=== PATIENT | female | born 1965 | race Caucasian/White ===

== ENCOUNTER → 2019-01-01 | Outpatient (CLI) | payer OTHER ==
[~2019-01-01] MED LIST: Amoxicillin500 MG PO; CRUTCH4 USE; CYCL10 PO; HYDACE5 PO; IBUP600 PO; NAPR500 PO; Norco 5-325 Ta1 EACH PO; Ultram50 MG PO; Zofran4 MG PO
[2019-01-05 14:07] LABS: HPV 16 Negative (Negative); HPV 18 Negative (Negative); HPV OTHER HR TYPES Negative (Negative)
== END | disposition home or self-care (01) ==
LOC: LAB SHORT 17:15 → LAB 17:15
PROVIDERS: Nurse Practitioner Family
DX: Z01.419 Encounter for gynecological examination (general) (routine) without abnormal findings (principal)
CPT/HCPCS: 87624; G0123

== ENCOUNTER 2023-04-12 06:33 | Inpatient (IN) | payer OTHER ==
[~2023-04-12] VITALS: Ht 165.1 cm; Wt 82.4 kg
[2023-04-12 07:25] LABS: BASOPHILS ABSOLUTE AUTO 0.04 K/mm3 (0.00-0.23); BASOPHILS PERCENT AUTO 0 % (0-2); EOSINOPHILS ABSOLUTE AUTO 0.07 K/mm3 (0.00-0.68); EOSINOPHILS PERCENT AUTO 0 % (0-6); Hematocrit 40.8 % (33.0-51.0); Hemoglobin 13.4 g/dL (11.5-16.0); IMMATURE GRAN ABSOLUTE AUTO 0.07 K/mm3 (0.00-0.10); IMMATURE GRAN PERCENT AUTO 0 % (0-1); LYMPHOCYTES ABSOLUTE AUTO 1.28 K/mm3 (0.84-5.20); LYMPHOCYTES PERCENT AUTO 8 % (21-46); MONOCYTES ABSOLUTE AUTO 1.25 K/mm3 (0.16-1.47); MONOCYTES PERCENT AUTO 8 % (4-13); Mean Corpuscular HGB 28.9 pg (26.0-34.0); Mean Corpuscular HGB Conc 32.8 g/dL (31.5-36.5); Mean Corpuscular Volume 88 fL (80-100); NEUTROPHILS ABSOLUTE AUTO 13.17 K/mm3 (1.96-9.15); NEUTROPHILS PERCENT AUTO 83 % (41-73); RDW Coefficient Variation 13.4 % (11.7-14.2); RDW Standard Deviation 43.1 fL (35.1-46.3); Red Blood Cell Count 4.64 M/mm3 (3.80-5.20); White Blood Cell Count 15.88 K/mm3 (4.00-11.30)
[2023-04-12 07:42] LABS: Albumin, Blood 2.6 g/dL (3.4-5.0); Albumin/Globulin Ratio 0.5 (0.8-1.8); Bilirubin, Direct 0.1 mg/dL (0.0-0.3); Bilirubin, Indirect 0.2 mg/dL (0.1-0.7); Bilirubin, Total 0.3 mg/dL (0.1-1.0); Bun/Creatinine Ratio 13.7 (12.0-20.0); Calcium, Blood 8.5 mg/dL (8.5-10.1); Creatinine, Blood 0.58 mg/dL (0.40-1.00); Magnesium, Blood 2.3 mg/dL (1.6-2.4); Potassium, Blood 3.9 mmol/L (3.5-5.5); Total Protein, Blood 7.6 g/dL (6.4-8.2)
[2023-04-12 07:53] LABS: Mean Platelet Volume 10.3 fL (9.1-12.4); Platelet Count 222 K/mm3 (150-400)
[2023-04-12 11:56] VITALS: BP 108/75
[2023-04-12 13:15] LABS: Influenza A, PCR NEGATIVE (NEGATIVE); Influenza B, PCR NEGATIVE (NEGATIVE); Resp Syncytial Virus, PCR NEGATIVE (NEGATIVE); SARS-Cov-2 (COVID-19) PCR, MMC NEGATIVE (NEGATIVE)
[2023-04-12 14:38] VITALS: BP 111/73
[2023-04-12 19:31] VITALS: BP 104/66
--- NOTE | 2023-04-12 19:56 | NUR ---
SHIFT SUMMARY- PT ADMITTED THROUGH THE ED. UPON ARRIVAL SHE WAS NOTED TO BE IN A LARGE AMOUNT OF PAIN. IV WAS INFUSING AZITHROMYACIN. NEW IV PLACED UPON ARRIVAL TO MEDICAL FLOOR 20G R AC RUNNING NS AT 125ML/HR. CALLED DR FONTANEZ FOR PAIN MANAGEMENT MEDS. OXY 5MG SEEMED TO HELP THE PT. HOWEVER IT WAS NOTED THAT SHE WAS HOLDING HER BODY TENSE, THE WEAK COUGH SHE HAS CAUSES THE PAIN TO BECOME UNBEARABLE (PER PT). ASSISTED THE PT TO RELAX. AFTER OXY SHE WAS ABLE TO MOVE ENOUGH TO GET OOB AND WALK TO THE BATHROOM 1P SBA. SHE WAS ASSISTD TO A GOWN AND ATTENDS,HAIR WASHED AND WASHCLOTH FOR FACE PROVIDED, HAIR COMBED. THEN THE PT WAS TALKED THROUGH RELAXING HER BODY. ONCE POSITIONED IN BED AND REMINDED TO RELAX, HER PAIN IMPROVED FOR A LITTLE BIT AND SHE WAS ABLE TO REST. PT PLACED ON TELE. PT REQUESTED PAIN MANAGEMENT AGAIN AT END OF SHIFT. TOO SOON TO MEDICATE AT THIS TIME HOWEVER HER TEMP WAS 100.0 ON LAST VITALS. CALLED ИР[facility] AND LEFT A MESSAGE, REALIZED DR FONTANEZ MAY STILL BE HERE, CALLED HIM HE PLACED AN ORDER FOR TYLENOL. TEMP RECHECK WAS 100.9. MEDICATED WITH 500MG TYLENOL. OXY AVAILABLE AGAIN AT 1940. 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 REPORT COMPLETED WITH NIGHT RN, NO CURRENT S&S OF DISTRESS. PT ON 2L VIA SD.
[2023-04-13 04:18] VITALS: BP 92/60
--- NOTE | 2023-04-13 04:20 | NUR ---
SHIFT SUMMARY PT ADMIT FOR SEPSIS PNA. EXIBITS SIGNS OF RESPIRATORY DISTRESS. PT STATES SHE IS "ANXIOUS AND PANICY" BECAUSE SHE CAN'T CATCH HER BREATH. ABLE TO EXERT SOME STRENGTH IN WALKING TO RESTROOM AT BEGINNING OF SHIFT, BUT WHEN PAIN RETURNS, SHE HAS DIFFICULTY MAKING IT ALL THE WAY. BEDSIDE COMMODE PROVIDED. MEDICATED FOR PAIN X2 DURING SHIFT. 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 RT IN ROOM X2 DURING SHIFT. TREATMENTS PROVING EFFECTIVE PT ABLE TO EFFECTIVELY EXIBIT PRODUCTIVE COUGHING AND VERBALIZES MORE EASE OF BREATHING. AFTER BREATHING TREATMENTS, PT ABLE TO HOLD CONVERSATION WITH MINIMAL TO MODERATE BREATHING DIFFICULTY. PLEASANT AND COOPERATIVE WITH CARE PLAN.
[2023-04-13 05:25] LABS: BASOPHILS ABSOLUTE AUTO 0.03 K/mm3 (0.00-0.23); BASOPHILS PERCENT AUTO 0 % (0-2); EOSINOPHILS ABSOLUTE AUTO 0.03 K/mm3 (0.00-0.68); EOSINOPHILS PERCENT AUTO 0 % (0-6); Hematocrit 33.1 % (33.0-51.0); Hemoglobin 10.5 g/dL (11.5-16.0); IMMATURE GRAN ABSOLUTE AUTO 0.04 K/mm3 (0.00-0.10); IMMATURE GRAN PERCENT AUTO 0 % (0-1); LYMPHOCYTES ABSOLUTE AUTO 1.23 K/mm3 (0.84-5.20); LYMPHOCYTES PERCENT AUTO 12 % (21-46); MONOCYTES PERCENT AUTO 10 % (4-13); Mean Corpuscular HGB 28.8 pg (26.0-34.0); Mean Corpuscular HGB Conc 31.7 g/dL (31.5-36.5); Mean Corpuscular Volume 91 fL (80-100); Mean Platelet Volume 10.3 fL (9.1-12.4); NEUTROPHILS ABSOLUTE AUTO 7.59 K/mm3 (1.96-9.15); NEUTROPHILS PERCENT AUTO 77 % (41-73); Platelet Count 227 K/mm3 (150-400); RDW Coefficient Variation 13.6 % (11.7-14.2); RDW Standard Deviation 46.4 fL (35.1-46.3); Red Blood Cell Count 3.65 M/mm3 (3.80-5.20); White Blood Cell Count 9.92 K/mm3 (4.00-11.30)
[2023-04-13 06:47] LABS: Albumin, Blood 1.9 g/dL (3.4-5.0); Albumin/Globulin Ratio 0.5 (0.8-1.8); Bilirubin, Total 0.2 mg/dL (0.1-1.0); Bun/Creatinine Ratio 10.9 (12.0-20.0); Calcium, Blood 7.6 mg/dL (8.5-10.1); Creatinine, Blood 0.55 mg/dL (0.40-1.00); Globulin, Blood 4.2 g/dL (2.2-4.0); Potassium, Blood 3.7 mmol/L (3.5-5.5); Total Protein, Blood 6.1 g/dL (6.4-8.2)
[2023-04-13 07:54] VITALS: BP 97/61
[2023-04-13 17:00] VITALS: BP 111/66
--- NOTE | 2023-04-13 17:20 | NUR ---
PT ASKED FOR PAIN MEDICATION FOR THE PAIN IN HER RIBS, TEMP WAS ELEVATED 101.6. WENT TO MEDICATE WITH TYLENOL AND OXY. PT WAS NOTABLY LETHARGIC AND HOT TO THE TOUCH. TEMP 101.8. MEDICATED WITH TYLENOL AND OXY, REMOVED BLANKETS AND SHEETS, HOB ELEVATED TO AID IN PT INCREASED WORK OF BREATHING. ASSISTED THE PT TO REMOVE PILLOWS FROM THE BED AROUND HER LEGS. NOTED THE LEFT LEG WAS HOT TO TOUCH, HOWEVER THE RIGHT LEG WAS MERELY WARM. ATTEMPTED TO PALPATE PEDAL PULSES AND WAS NOT ABLE TO PALPATE THE LEFT PEDAL PULSE. USED THE DOPPLER TO FIND THE PULSE, IT TOOK A FEW MINUTES TO LOCATE THE VERY FAINT MURMURING PULSE ON THE RIGHT FOOT, WHEN COMPARED TO THE LEFT THE SOUND WAS VERY DIFFERENT. CALLED DR FONTANEZ, HE WAS OFF BY THIS TIME ([id number]) CALLED ИРИН[facility], RECIEVED ORDER FOR ARTERIAL STUDY ON THE RLE, STAT CHEST XRAY AND STAT VBG. ALL WERE COMPLETED. NOTED PT SATS WERE LOW, CALLED RT AND INCREASED FLOW OF O2. PT NOW ON 5L VIA NC TO MAINTAIN SATS 90-93%. RT PROVIDED A TREATMENT DURING THIS EVENT.
[2023-04-13 18:19] LABS: Bicarbonate Venous 26.4 mmol/L (24.0-30.0); PCO2 Venous 33.2 mmHg (38-42); pH Blood Venous 7.49 (7.34-7.37)
[2023-04-13 19:42] VITALS: BP 107/68
--- NOTE | 2023-04-13 19:46 | NUR ---
SHIFT SUMMARY- AFTER THE PT HAD HER BREATHING Tx AND THE TYLENOL AND ICE PACKS IN THE ARM PITS AND BACK OF THE NECK, HER FEVER APPARENTLY BROKE. SHE BECAME DRENCHED IN SWEAT, GOWN, ATTENDS, PIERRE AND PILLOW CASES WERE CHANGED. PT ASSISTED TO BSC. O2 SATS 93% ON 5L VIA NC. SPOKE TO ИРИНА ABOUT THE IMAGES AND RECIEVED AN ADDITIONAL ORDER FOR PO IBUPROFEN. FIRST DOSE NOW. PT IS NOW ALERT AND TACHYPNIC, RESP RATE 25, RT IS AWARE OF THE PT. PASSED THIS ALL ON IN REPORT TO NIGHT RN. SUGGESTED SHE REQUEST CONT PULSE OX FROM MD WHEN THE MD IS CALLED THIS EVENING. ARTERIAL STUDY WAS ORDERED FOR THE RLE D/T DECREASED PULSE AND DECREASED CAP REFILL. PT IS ON TELE AND DURING THIS EVENT THIS EVENING SHE DID HAVE A RUN OF BIGEMENY (PER TELE). PT IS CURRENTLY SITTING UP IN BED, CALL LIGHT IN REACH. HER BREATHING APPEARS LABORED AND FAST, NIGHT RN AND WASTE COTTON CLEANER MADE AWARE OF THE PT STATUS.
--- NOTE | 2023-04-14 04:07 | NUR ---
PATIENT IS ALERT AND ORIENTED, ON TELE SINUS RHYTHM AT 73. WITH OXYGEN AT 5LPM/NASAL CANNULA. WITH PRODUCTIVE COUGH, NEBULIZATION TREATMENT GIVEN BY RT. ONGOING IV FLUIDS OF NSS 1L AT 125 ML/HR ON RIGHT AC, INFUSING WELL. COMPLAINT OF LEFT RIB PAIN AND GIVEN HER TYLENOL AND OXYCODONE. NO OTHER COMPLAINTS MADE. NEEDS ATTENDED. CALL LIGHT WITHIN PATIENT'S REACH. WILL CONTINUE TO MONUTOR.
[2023-04-14 05:02] VITALS: BP 117/67
[2023-04-14 05:44] LABS: BASOPHILS ABSOLUTE AUTO 0.03 K/mm3 (0.00-0.23); BASOPHILS PERCENT AUTO 0 % (0-2); EOSINOPHILS ABSOLUTE AUTO 0.08 K/mm3 (0.00-0.68); EOSINOPHILS PERCENT AUTO 1 % (0-6); Hematocrit 34.3 % (33.0-51.0); Hemoglobin 10.9 g/dL (11.5-16.0); IMMATURE GRAN ABSOLUTE AUTO 0.03 K/mm3 (0.00-0.10); IMMATURE GRAN PERCENT AUTO 0 % (0-1); LYMPHOCYTES ABSOLUTE AUTO 1.49 K/mm3 (0.84-5.20); LYMPHOCYTES PERCENT AUTO 16 % (21-46); MONOCYTES PERCENT AUTO 12 % (4-13); Mean Corpuscular HGB 28.6 pg (26.0-34.0); Mean Corpuscular HGB Conc 31.8 g/dL (31.5-36.5); Mean Corpuscular Volume 90 fL (80-100); NEUTROPHILS ABSOLUTE AUTO 6.53 K/mm3 (1.96-9.15); NEUTROPHILS PERCENT AUTO 71 % (41-73); RDW Coefficient Variation 13.7 % (11.7-14.2); RDW Standard Deviation 45.4 fL (35.1-46.3); Red Blood Cell Count 3.81 M/mm3 (3.80-5.20); White Blood Cell Count 9.26 K/mm3 (4.00-11.30)
[2023-04-14 06:05] LABS: Bun/Creatinine Ratio 22.9 (12.0-20.0); Calcium, Blood 8.2 mg/dL (8.5-10.1); Creatinine, Blood 0.39 mg/dL (0.40-1.00); Potassium, Blood 3.9 mmol/L (3.5-5.5)
[2023-04-14 06:09] LABS: Platelet Count 272 K/mm3 (150-400)
[2023-04-14 07:41] VITALS: BP 118/71
[2023-04-14 17:08] VITALS: BP 107/68
--- NOTE | 2023-04-14 17:38 | NUR ---
SHIFT SUMMARY NO ACUTE CHANGES THIS SHIFT. CALL LIGHT WITHIN REACH AND PT ABLE TO MAKE NEEDS KNOWN.
[2023-04-14 20:24] VITALS: BP 91/62
--- NOTE | 2023-04-15 04:43 | NUR ---
PATIENT IS ALERT AND ORIENTED. WITH OXYGEN ON 4 LPM/NASAL CANNULA. BREATHING TREATMENT RENDERED BY RESPIRATORY THERAPIST. ON TELE ON SINUS RHYTHM AT 76. WITH PIV ON RIGHT ARM WITH ONGOING IV FLUIDS OF NSS 1L AT 125 ML/HR. MEDICATED FOR PAIN. NEED ATTENDED. CALL LIGHT WITHIN PATIENT'S REACH, CALL APPROPRIATELY. WILL CONITNUE TO MONITOR.
[2023-04-15 05:03] VITALS: BP 87/61
[2023-04-15 05:32] LABS: BASOPHILS ABSOLUTE AUTO 0.03 K/mm3 (0.00-0.23); BASOPHILS PERCENT AUTO 0 % (0-2); EOSINOPHILS ABSOLUTE AUTO 0.08 K/mm3 (0.00-0.68); EOSINOPHILS PERCENT AUTO 1 % (0-6); Hematocrit 30.8 % (33.0-51.0); IMMATURE GRAN ABSOLUTE AUTO 0.05 K/mm3 (0.00-0.10); IMMATURE GRAN PERCENT AUTO 1 % (0-1); LYMPHOCYTES ABSOLUTE AUTO 1.18 K/mm3 (0.84-5.20); LYMPHOCYTES PERCENT AUTO 12 % (21-46); MONOCYTES ABSOLUTE AUTO 1.23 K/mm3 (0.16-1.47); MONOCYTES PERCENT AUTO 12 % (4-13); Mean Corpuscular HGB 28.7 pg (26.0-34.0); Mean Corpuscular HGB Conc 32.5 g/dL (31.5-36.5); Mean Corpuscular Volume 88 fL (80-100); Mean Platelet Volume 9.5 fL (9.1-12.4); NEUTROPHILS ABSOLUTE AUTO 7.53 K/mm3 (1.96-9.15); NEUTROPHILS PERCENT AUTO 75 % (41-73); Platelet Count 325 K/mm3 (150-400); RDW Coefficient Variation 13.8 % (11.7-14.2); RDW Standard Deviation 44.8 fL (35.1-46.3); Red Blood Cell Count 3.49 M/mm3 (3.80-5.20)
[2023-04-15 06:00] LABS: Albumin, Blood 1.7 g/dL (3.4-5.0); Anion Gap 4 mmol/L (6-16); Blood Urea Nitrogen 8 mg/dL (8-24); Bun/Creatinine Ratio 20.5 (12.0-20.0); CO2, Blood 28 mmol/L (21-32); Calcium, Blood 8.2 mg/dL (8.5-10.1); Chloride, Blood 109 mmol/L (98-108); Creatinine, Blood 0.39 mg/dL (0.40-1.00); Glomerular Filtration Rate 115 (60-); Glucose, Blood 100 mg/dL (70-99); Magnesium, Blood 2.1 mg/dL (1.6-2.4); Phosphorus, Blood 3.6 mg/dL (2.5-4.9); Potassium, Blood 3.7 mmol/L (3.5-5.5); Sodium, Blood 141 mmol/L (136-145)
[2023-04-15 07:34] VITALS: BP 98/62
[2023-04-15 15:40] VITALS: BP 109/65
--- NOTE | 2023-04-15 18:23 | NUR ---
SHIFT SUMMARY PT WITH L CHEST/RIB PAIN. STATES SHE COUGHS MORE WHEN HER PAIN MEDS WEAR OFF AND THE PAIN THEN GETS WORSE. COUGHING UP SPUTUM. IN TO STAY WITH PT MOST OF THE DAY. DECREASED O2 TO 2.5 L/M AND SATS REMAIN IN LOW 90'S.
[2023-04-15 19:50] VITALS: BP 105/53
[2023-04-16 03:15] VITALS: BP 121/58
[2023-04-16 05:18] LABS: BASOPHILS ABSOLUTE AUTO 0.02 K/mm3 (0.00-0.23); BASOPHILS PERCENT AUTO 0 % (0-2); EOSINOPHILS ABSOLUTE AUTO 0.02 K/mm3 (0.00-0.68); EOSINOPHILS PERCENT AUTO 0 % (0-6); Hematocrit 30.6 % (33.0-51.0); IMMATURE GRAN ABSOLUTE AUTO 0.06 K/mm3 (0.00-0.10); IMMATURE GRAN PERCENT AUTO 1 % (0-1); LYMPHOCYTES ABSOLUTE AUTO 1.44 K/mm3 (0.84-5.20); LYMPHOCYTES PERCENT AUTO 13 % (21-46); MONOCYTES ABSOLUTE AUTO 0.99 K/mm3 (0.16-1.47); MONOCYTES PERCENT AUTO 9 % (4-13); Mean Corpuscular HGB 28.7 pg (26.0-34.0); Mean Corpuscular HGB Conc 32.7 g/dL (31.5-36.5); Mean Corpuscular Volume 88 fL (80-100); Mean Platelet Volume 9.4 fL (9.1-12.4); NEUTROPHILS ABSOLUTE AUTO 8.52 K/mm3 (1.96-9.15); NEUTROPHILS PERCENT AUTO 77 % (41-73); Platelet Count 403 K/mm3 (150-400); RDW Coefficient Variation 13.8 % (11.7-14.2); RDW Standard Deviation 43.8 fL (35.1-46.3); Red Blood Cell Count 3.49 M/mm3 (3.80-5.20); White Blood Cell Count 11.05 K/mm3 (4.00-11.30)
--- NOTE | 2023-04-16 05:41 | NUR ---
SHIFT SUMMARY NOC PT A/O X 4. PLEASANT AND COOPERATIVE WITH CARE. PT STARTED IV VANCOMYCIN TONIGHT. PT ON O2 2.5L/NC. PT MEDICATED FOR LUQ BY OFF GOING DAY RN AFTER REPORT. BP STABLE. NO ACUTE EVENTS TO REPORT. PT IS CURRENTLY RESTING WITH BED IN LOWEST POSITION, AND CALL LIGHT WITHIN REACH.
[2023-04-16 05:53] LABS: Albumin, Blood 1.7 g/dL (3.4-5.0); Anion Gap 4 mmol/L (6-16); Blood Urea Nitrogen 11 mg/dL (8-24); Bun/Creatinine Ratio 26.8 (12.0-20.0); CO2, Blood 29 mmol/L (21-32); Calcium, Blood 8.5 mg/dL (8.5-10.1); Chloride, Blood 109 mmol/L (98-108); Creatinine, Blood 0.41 mg/dL (0.40-1.00); Glomerular Filtration Rate 114 (60-); Glucose, Blood 126 mg/dL (70-99); Phosphorus, Blood 3.5 mg/dL (2.5-4.9); Potassium, Blood 3.6 mmol/L (3.5-5.5); Sodium, Blood 142 mmol/L (136-145)
[2023-04-16 07:14] VITALS: BP 108/52
[2023-04-16 15:28] VITALS: BP 125/59
--- NOTE | 2023-04-16 18:05 | NUR ---
SHIFT SUMMARY PATIENT ALERT AND INTERACTIVE. ANXIOUS AND EASILY SOB WITH ANY ACTIVITY. PATIENT AMBULATING IN THE ROOM WITH STAND BY ASSISTANCE. PATIENT AMBULATED OUT IN THE MICHAEL X1. PATIENT CONTINUES ON 02 AT 2L. PATIENT COUGHING UP THICK GREEN/BROWN SECRETIONS. PATIENT REQUESTING PAIN MEDS FREQUENTLY FOR PAIN IN CHEST AREA WITH COUGHING. PATIENT NEEDING A LOT OF REASSURANCE AND ACTIVE LISTENING.
[2023-04-16 19:23] VITALS: BP 108/61
[2023-04-16 21:22] LABS: Vancomycin, Trough 15.8 ug/mL (5.0-10.0)
[2023-04-17 02:14] VITALS: BP 111/67
--- NOTE | 2023-04-17 04:13 | NUR ---
SHIFT SUMMARY PATIENT HAD NO ACUTE CHANGES. AXOX 4 AND SBA TO BR. REPORTED LS RIB AND BACK PAIN X ONE AND OXYCODONE 5 MG GIVEN PER EMAR. TRAZODONE 50 MG GIVE FOR INSOMNIA. VSS/AFEBRILE. PIV INTACT. IV ABX INFUSED. DENIES CHEST PAIN, SOB, AND N/V. RT IN FOR BREATHING TX. ON 2L O2 NC. CALL LIGHT IN REACH. BED IN LOWEST POSITION. WILL CONTINUE TO MONITOR UNTIL DAY SHIFT NURSE ASSUMES CARE.
[2023-04-17 06:10] LABS: BASOPHILS ABSOLUTE AUTO 0.03 K/mm3 (0.00-0.23); BASOPHILS PERCENT AUTO 0 % (0-2); EOSINOPHILS ABSOLUTE AUTO 0.02 K/mm3 (0.00-0.68); EOSINOPHILS PERCENT AUTO 0 % (0-6); Hemoglobin 10.2 g/dL (11.5-16.0); IMMATURE GRAN ABSOLUTE AUTO 0.04 K/mm3 (0.00-0.10); IMMATURE GRAN PERCENT AUTO 1 % (0-1); LYMPHOCYTES ABSOLUTE AUTO 1.95 K/mm3 (0.84-5.20); LYMPHOCYTES PERCENT AUTO 25 % (21-46); MONOCYTES ABSOLUTE AUTO 0.78 K/mm3 (0.16-1.47); MONOCYTES PERCENT AUTO 10 % (4-13); Mean Corpuscular HGB 28.3 pg (26.0-34.0); Mean Corpuscular HGB Conc 31.9 g/dL (31.5-36.5); Mean Corpuscular Volume 89 fL (80-100); Mean Platelet Volume 9.4 fL (9.1-12.4); NEUTROPHILS ABSOLUTE AUTO 5.13 K/mm3 (1.96-9.15); NEUTROPHILS PERCENT AUTO 65 % (41-73); Platelet Count 451 K/mm3 (150-400); RDW Coefficient Variation 14.1 % (11.7-14.2); RDW Standard Deviation 45.2 fL (35.1-46.3); Red Blood Cell Count 3.61 M/mm3 (3.80-5.20); White Blood Cell Count 7.95 K/mm3 (4.00-11.30)
[2023-04-17 06:26] LABS: Albumin, Blood 1.8 g/dL (3.4-5.0); Anion Gap 4 mmol/L (6-16); Blood Urea Nitrogen 13 mg/dL (8-24); Bun/Creatinine Ratio 27.5 (12.0-20.0); CO2, Blood 31 mmol/L (21-32); Calcium, Blood 8.4 mg/dL (8.5-10.1); Chloride, Blood 109 mmol/L (98-108); Creatinine, Blood 0.47 mg/dL (0.40-1.00); Glomerular Filtration Rate 110 (60-); Glucose, Blood 89 mg/dL (70-99); Phosphorus, Blood 4.2 mg/dL (2.5-4.9); Potassium, Blood 3.7 mmol/L (3.5-5.5); Sodium, Blood 144 mmol/L (136-145)
[2023-04-17 07:14] VITALS: BP 129/83
[2023-04-17 15:59] VITALS: BP 114/67
--- NOTE | 2023-04-17 18:22 | NUR ---
SHIFT SUMMARY NO ACUTE CHANGES THIS SHIFT. CALL LIGHT WITHIN REACH AND PT ABLE TO MAKE NEEDS KNOWN. PLAN FOR HOME O2 EVALUATION PRIOR TO DISCHARGE.
[2023-04-17 19:19] VITALS: BP 119/68
[2023-04-18 02:51] VITALS: BP 103/60
--- NOTE | 2023-04-18 04:28 | NUR ---
SHIFT SUMMARY PATIENT HAD NO ACUTE CHANGES. AXOX 4 AND SBA TO BR. ON 2L O2 NC. VSS/AFEBRILE. DENIES CHEST PAIN, SOB, AND N/V. REPORTED BACK/RIB PAIN X 1 AND OXYCODONE 5 MG GIVEN PER EMAR. RT IN FOR BREATHING TX. SLEPT MOST OF THE SHIFT. CALL LIGHT IN REACH. BED IN LOWEST POSITION. WILL CONTINUE TO MONITOR UNTIL DAY SHIFT NURSE ASSUMES CARE.
[2023-04-18 05:30] LABS: BASOPHILS ABSOLUTE AUTO 0.03 K/mm3 (0.00-0.23); BASOPHILS PERCENT AUTO 0 % (0-2); EOSINOPHILS ABSOLUTE AUTO 0.08 K/mm3 (0.00-0.68); EOSINOPHILS PERCENT AUTO 1 % (0-6); Hematocrit 31.7 % (33.0-51.0); Hemoglobin 9.9 g/dL (11.5-16.0); IMMATURE GRAN ABSOLUTE AUTO 0.06 K/mm3 (0.00-0.10); IMMATURE GRAN PERCENT AUTO 1 % (0-1); LYMPHOCYTES ABSOLUTE AUTO 1.76 K/mm3 (0.84-5.20); LYMPHOCYTES PERCENT AUTO 19 % (21-46); MONOCYTES ABSOLUTE AUTO 0.77 K/mm3 (0.16-1.47); MONOCYTES PERCENT AUTO 8 % (4-13); Mean Corpuscular HGB 28.2 pg (26.0-34.0); Mean Corpuscular HGB Conc 31.2 g/dL (31.5-36.5); Mean Corpuscular Volume 90 fL (80-100); Mean Platelet Volume 9.3 fL (9.1-12.4); NEUTROPHILS PERCENT AUTO 71 % (41-73); Platelet Count 485 K/mm3 (150-400); RDW Coefficient Variation 13.9 % (11.7-14.2); RDW Standard Deviation 45.5 fL (35.1-46.3); Red Blood Cell Count 3.51 M/mm3 (3.80-5.20)
[2023-04-18 05:57] LABS: Albumin, Blood 1.7 g/dL (3.4-5.0); Anion Gap 6 mmol/L (6-16); Blood Urea Nitrogen 16 mg/dL (8-24); Bun/Creatinine Ratio 31.1 (12.0-20.0); CO2, Blood 28 mmol/L (21-32); Calcium, Blood 8.2 mg/dL (8.5-10.1); Chloride, Blood 111 mmol/L (98-108); Creatinine, Blood 0.52 mg/dL (0.40-1.00); Glomerular Filtration Rate 108 (60-); Glucose, Blood 96 mg/dL (70-99); Phosphorus, Blood 3.7 mg/dL (2.5-4.9); Potassium, Blood 4.2 mmol/L (3.5-5.5); Sodium, Blood 145 mmol/L (136-145)
[2023-04-18 07:43] VITALS: BP 100/52
[2023-04-18 07:48] VITALS: BP 112/65
[2023-04-18] MEDS ORDERED: GUAI600T33 PO (14:10)
[2023-04-18] MEDS ORDERED: ACET500 PO (14:10)
[2023-04-18] MEDS ORDERED: IBUP400 PO (14:10)
[2023-04-18] MEDS ORDERED: LACT PO (14:11)
[2023-04-18] MEDS ORDERED: OXYC5 PO (14:12)
[2023-04-18] MEDS ORDERED: PRED20 PO (14:12)
[2023-04-18] MEDS ORDERED: POTA10T PO (14:14)
[2023-04-18] MEDS ORDERED: TRAZ50 PO (14:14)
[2023-04-18] MEDS ORDERED: SULTRIDS PO (14:14)
--- NOTE | 2023-04-18 15:10 | NUR ---
Patient ready for discharge. Provided education on discharge plan and new medications. Patient verbalized understanding. Jenifer delivered O2 tank to patients room. Removed IV. Patient left medical unit at 1500.
== END 2023-04-18 17:32 | disposition home or self-care (01) | DRG 871 ==
LOC: ER 06:33 → MEDS 06:34 → ENPENDDIS 04-18 13:18 → MEDS 04-18 17:32
PROVIDERS: Family Medicine; Nurse Practitioner Acute Care; Student in an Organized Health Care Education/Training Program; ADMIT Internal Medicine
DX: A41.02 Sepsis due to Methicillin resistant Staphylococcus aureus (principal); J18.9 Pneumonia, unspecified organism; J96.01 Acute respiratory failure with hypoxia; Z88.0 Allergy status to penicillin; Z98.890 Other specified postprocedural states; Z90.89 Acquired absence of other organs; Z90.49 Acquired absence of other specified parts of digestive tract; F17.210 Nicotine dependence, cigarettes, uncomplicated; Z71.6 Tobacco abuse counseling; Z11.52 Encounter for screening for COVID-19
CPT/HCPCS: 0241U; 36415; 71045; 74177; 80048; 80053; 80069; 80076; 80202; 82803; 83036; 83605; 83690; 83735; 84484; 85025; 87040; 87070; 87077; 87147; 87186; 87205; 93005; 93010; 93926; 94640; 94664; 94760; 94761; 96361; 96365-59; 96366; 96372; 96375; 96376; 99285-25; A9270; G0378; J0456; J0696; J1650; J1885; J2405; J3010; J3370; J7030; J7050; J7512; Q9967

== ENCOUNTER 2024-01-01 06:54 | Day surgery (SDC) | payer OTHER ==
[~2024-01-01] VITALS: Ht 165.1 cm; Wt 78.4 kg
[~2024-01-01 06:54] MED LIST changes: +ACET500 PO; +GABA100 PO; +GUAI600T33 PO; +IBUP400 PO; +LACT PO; +Lactated Ringer's 1,000 ML IV ONE; +Lidocaine 1%-Epineph 1:100000 20 ML MDV ONE; +OXYC5 PO; +POTA10T PO; +PRED20 PO; +SERT50 PO; +SULTRIDS PO; +Sodium Bicarb 8.4% 1 MEQ/ML 50 ML Vial ONE; +TRAZ50 PO
[2024-01-01] MEDS ORDERED: ESTRADIOL1 M1 PO (07:15)
[2024-01-01] MEDS ORDERED: BEVESPI AEROS10.7 G1 IH (07:15)
[2024-01-01] MEDS ORDERED: Lactated Ringer's 1,000 ML IV ONE (07:18)
--- NOTE | 2024-01-01 07:19 | NUR ---
01/01/24 0719 Genia King NO QUESTIONS OR CONCERNS. WARM BLANKETS PROVIDED. CALL LIGHT WITHIN REACH. BED IN LOWEST POSITION.
[2024-01-01] MEDS ORDERED: Lidocaine 2%-Epineph 1:100000 20 ML MDV ONE (07:25)
[2024-01-01] MEDS ORDERED: Midazolam HCl 1MG / ML 2ML Vial ONE (07:48)
[2024-01-01] MEDS ORDERED: FentaNYL Citrate 50 MCG/ML 2 ML Injection ONE (08:00)
[2024-01-01] MEDS ORDERED: propofoL 20 ML IV ONE (08:03)
[2024-01-01 08:37] VITALS: BP 116/72
== END 2024-01-01 08:38 | disposition home or self-care (01) ==
LOC: ORSCSDS 06:54
PROVIDERS: Orthopaedic Surgery
PROC: 01N54ZZ Release Median Nerve, Percutaneous Endoscopic Approach (ICD-10-PCS; principal; 2024-01-01 08:00)
DX: G56.02 Carpal tunnel syndrome, left upper limb (principal); J44.9 Chronic obstructive pulmonary disease, unspecified; F17.210 Nicotine dependence, cigarettes, uncomplicated; Z79.899 Other long term (current) drug therapy
CPT/HCPCS: J2250; J2704; J3010; J7120

== ENCOUNTER 2024-04-17 15:57 | Emergency (ER) | payer OTHER ==
[~2024-04-17] VITALS: Ht 165.1 cm; Wt 77.1 kg
[~2024-04-17 15:57] MED LIST changes: +ALBU90OI; +BEVESPI AEROS10.7 G1 IH; +ESTRADIOL1 M1 PO; -Lactated Ringer's 1,000 ML IV ONE; -Lidocaine 1%-Epineph 1:100000 20 ML MDV ONE; -Sodium Bicarb 8.4% 1 MEQ/ML 50 ML Vial ONE
[2024-04-17 16:45] LABS: BASOPHILS ABSOLUTE AUTO 0.05 K/mm3 (0.00-0.23); BASOPHILS PERCENT AUTO 1 % (0-2); EOSINOPHILS ABSOLUTE AUTO 0.11 K/mm3 (0.00-0.68); EOSINOPHILS PERCENT AUTO 2 % (0-6); Hemoglobin 12.6 g/dL (11.5-16.0); IMMATURE GRAN ABSOLUTE AUTO 0.01 K/mm3 (0.00-0.10); IMMATURE GRAN PERCENT AUTO 0 % (0-1); LYMPHOCYTES ABSOLUTE AUTO 1.66 K/mm3 (0.84-5.20); LYMPHOCYTES PERCENT AUTO 29 % (21-46); MONOCYTES ABSOLUTE AUTO 0.46 K/mm3 (0.16-1.47); MONOCYTES PERCENT AUTO 8 % (4-13); Mean Corpuscular HGB Conc 32.3 g/dL (31.5-36.5); Mean Corpuscular Volume 90 fL (80-100); Mean Platelet Volume 9.4 fL (9.1-12.4); NEUTROPHILS ABSOLUTE AUTO 3.36 K/mm3 (1.96-9.15); NEUTROPHILS PERCENT AUTO 60 % (41-73); Platelet Count 231 K/mm3 (150-400); RDW Coefficient Variation 13.5 % (11.7-14.2); RDW Standard Deviation 44.3 fL (35.1-46.3); Red Blood Cell Count 4.35 M/mm3 (3.80-5.20); White Blood Cell Count 5.65 K/mm3 (4.00-11.30)
[2024-04-17 17:06] LABS: Albumin/Globulin Ratio 0.8 (0.8-1.8); Bilirubin, Total 0.4 mg/dL (0.1-1.0); Bun/Creatinine Ratio 24.4 (12.0-20.0); Calcium, Blood 8.3 mg/dL (8.5-10.1); Creatinine, Blood 0.57 mg/dL (0.40-1.00); Globulin, Blood 3.6 g/dL (2.2-4.0); Potassium, Blood 3.8 mmol/L (3.5-5.5); Total Protein, Blood 6.6 g/dL (6.4-8.2)
[2024-04-17] MEDS ORDERED: Ibuprofen 600 MG Tab PO ONE (17:25)
[2024-04-17] MEDS ORDERED: Acetaminophen 500 MG Tab PO ONE (17:25)
[2024-04-17] MEDS ORDERED: IBUP600 PO (19:54)
[2024-04-17] MEDS ORDERED: ACET500 PO (19:54)
[2024-04-17 20:00] VITALS: BP 134/85
== END 2024-04-17 20:01 | disposition home or self-care (01) ==
LOC: ER 15:57
PROVIDERS: Emergency Medicine
DX: R07.9 Chest pain, unspecified (principal); F17.210 Nicotine dependence, cigarettes, uncomplicated; Z79.899 Other long term (current) drug therapy; Z88.0 Allergy status to penicillin
CPT/HCPCS: 71046; 80053; 83690; 84484; 85025; 93005; 93010; 99285-25; A9270